=== PATIENT | female | born 1990 | race Two or more races ===

== ENCOUNTER 2019-04-30 14:18 | Emergency (ER) | payer OTHER ==
[~2019-04-30] VITALS: Ht 157.5 cm; Wt 58.0 kg
[2019-04-30 16:54] VITALS: BP 109/73
== END 2019-04-30 17:25 | disposition home or self-care (01) ==
LOC: ER 14:18
DX: R00.2 Palpitations (principal); R00.0 Tachycardia, unspecified
CPT/HCPCS: 81025; 93005; 99283

== ENCOUNTER 2019-05-01 22:55 | Emergency (ER) | payer OTHER ==
[~2019-05-01] VITALS: Ht 160 cm; Wt 57.0 kg
[2019-05-02 02:21] LABS: BASOPHILS % 0.8 % (0.0-2.0); EOSINOPHILS % 0.5 % (0.0-5.0); HEMATOCRIT. 41.6 % (36.0-48.0); HEMOGLOBIN. 14.2 g/dL (12.0-16.0); LYMPHOCYTES % 32.3 % (20.0-50.0); MEAN CORPUSCULAR HEMOGLOBIN 31.1 pg (28.0-32.0); MEAN CORPUSCULAR VOLUME 91.1 fL (81.0-99.0); MEAN PLATELET VOLUME 7.9 fl (7.4-10.4); MONOCYTES % 7.4 % (2.0-8.0); PLATELET 263 x1000/uL (130-400); RED BLOOD CELL COUNT 4.57 mill/uL (4.2-5.4); RED CELL DISTRIBUTION WIDTH 13.4 % (11.6-14.6)
[2019-05-02 02:31] LABS: CHLORIDE 107 mEq/L (98-107)
[2019-05-02 03:13] LABS: CLARITY URINE CLOUDY (CLEAR); COLOR URINE YELLOW (YELLOW); KETONES URINE NEGATIVE (NEGATIVE); LEUKOCYTE ESTERASE URINE TRACE (NEGATIVE); NITRITE URINE NEGATIVE (NEGATIVE); OCCULT BLOOD URINE NEGATIVE (NEGATIVE); PH URINE 5.5 (4.5-8.0); PROTEIN URINE NEGATIVE (NEGATIVE); SPECIFIC GRAVITY URINE 1.019 (1.005-1.030); UROBILINOGEN URINE 0.2 E.U./dL (0.2-1.0)
[2019-05-02] MEDS ORDERED: LORAZEPAM 0.5MG TABLET PO ONE (03:15)
[2019-05-02 05:29] VITALS: BP 110/64
== END 2019-05-02 05:30 | disposition home or self-care (01) ==
LOC: ER 22:55
DX: R00.2 Palpitations (principal)
CPT/HCPCS: 36415; 71045; 80053; 81003; 81025; 83880; 84484; 85025; 85379; 93005; 99285

== ENCOUNTER 2019-06-30 01:37 | Emergency (ER) | payer OTHER ==
[~2019-06-30] VITALS: Ht 157.5 cm; Wt 58.0 kg
[2019-06-30 04:03] LABS: CHLORIDE 104 mEq/L (98-107)
[2019-06-30 04:05] LABS: BASOPHILS % 0.5 % (0.0-2.0); EOSINOPHILS % 0.1 % (0.0-5.0); HEMATOCRIT. 44.3 % (36.0-48.0); HEMOGLOBIN. 15.2 g/dL (12.0-16.0); LYMPHOCYTES % 13.2 % (20.0-50.0); MEAN CORPUSCULAR HEMOGLOBIN 31.2 pg (28.0-32.0); MEAN CORPUSCULAR VOLUME 91.1 fL (81.0-99.0); MEAN PLATELET VOLUME 8.4 fl (7.4-10.4); MONOCYTES % 5.9 % (2.0-8.0); NEUTROPHILS % 80.3 % (40.0-76.0); PLATELET 275 x1000/uL (130-400); RED BLOOD CELL COUNT 4.86 mill/uL (4.2-5.4); RED CELL DISTRIBUTION WIDTH 13.7 % (11.6-14.6)
[2019-06-30 04:07] LABS: ETHANOL BLOOD < 10 mg/dL
[2019-06-30 04:30] LABS: *AMPHETAMINES SCREEN URINE NEGATIVE (NEGATIVE); *BARBITURATES SCREEN URINE NEGATIVE (NEGATIVE)
[2019-06-30 04:31] LABS: *BENZODIAZEPINES SCREEN URINE NEGATIVE (NEGATIVE); *COCAINE SCREEN URINE NEGATIVE (NEGATIVE); METHADONE URINE SCREEN NEGATIVE (NEGATIVE); OPIATES URINE SCREEN NEGATIVE (NEGATIVE); PHENCYCLIDINE URINE SCREEN NEGATIVE (NEGATIVE)
[2019-06-30 04:32] LABS: CANNABINOID URINE SCREEN NEGATIVE (NEGATIVE)
[2019-06-30 06:42] VITALS: BP 120/79
== END 2019-06-30 06:45 | disposition home or self-care (01) ==
LOC: ER 01:37
DX: F41.9 Anxiety disorder, unspecified (principal); F19.10 Other psychoactive substance abuse, uncomplicated; R53.1 Weakness
CPT/HCPCS: 36415; 80053; 80305; 80320; 81025; 85025; 93005; 99284; G0480

== ENCOUNTER 2019-07-19 18:12 | Emergency (ER) | payer OTHER ==
[2019-07-19] MEDS ORDERED: SODIUM CHLORIDE 0.9% 1,000 ML IV ONE (18:53)
[2019-07-19] MEDS ORDERED: ONDANSETRON HCL 4MG/2ML INJ IV STA (18:53)
[2019-07-19 19:43] LABS: CHLORIDE 107 mEq/L (98-107)
[2019-07-19 19:45] LABS: BASOPHILS % 0.5 % (0.0-2.0); EOSINOPHILS % 0.4 % (0.0-5.0); ETHANOL BLOOD < 10 mg/dL; HEMATOCRIT. 41.2 % (36.0-48.0); HEMOGLOBIN. 14.2 g/dL (12.0-16.0); LYMPHOCYTES % 29.8 % (20.0-50.0); MEAN CORPUSCULAR HEMOGLOBIN 31.8 pg (28.0-32.0); MEAN CORPUSCULAR VOLUME 92.3 fL (81.0-99.0); MONOCYTES % 7.9 % (2.0-8.0); NEUTROPHILS % 61.4 % (40.0-76.0); PLATELET 259 x1000/uL (130-400); RED BLOOD CELL COUNT 4.47 mill/uL (4.2-5.4); RED CELL DISTRIBUTION WIDTH 13.6 % (11.6-14.6)
[2019-07-19 19:53] LABS: HCG SCREEN POSITIVE
[2019-07-19 19:56] LABS: CLARITY URINE CLEAR (CLEAR); COLOR URINE YELLOW (YELLOW); KETONES URINE NEGATIVE (NEGATIVE); LEUKOCYTE ESTERASE URINE NEGATIVE (NEGATIVE); NITRITE URINE NEGATIVE (NEGATIVE); OCCULT BLOOD URINE NEGATIVE (NEGATIVE); PH URINE 5.5 (4.5-8.0); PROTEIN URINE NEGATIVE (NEGATIVE); SPECIFIC GRAVITY URINE 1.005 (1.005-1.030); UROBILINOGEN URINE 0.2 E.U./dL (0.2-1.0)
[2019-07-19] MEDS ORDERED: POTASSIUM CHLORIDE 20MEQ TABLET SR PO ONE (20:00)
[2019-07-19 20:18] LABS: *AMPHETAMINES SCREEN URINE NEGATIVE (NEGATIVE); *BARBITURATES SCREEN URINE NEGATIVE (NEGATIVE); *BENZODIAZEPINES SCREEN URINE NEGATIVE (NEGATIVE); *COCAINE SCREEN URINE NEGATIVE (NEGATIVE); METHADONE URINE SCREEN NEGATIVE (NEGATIVE); OPIATES URINE SCREEN NEGATIVE (NEGATIVE); PHENCYCLIDINE URINE SCREEN NEGATIVE (NEGATIVE)
[2019-07-19 20:19] LABS: CANNABINOID URINE SCREEN NEGATIVE (NEGATIVE)
[2019-07-19] MEDS ORDERED: METOCLOPRAMIDE HCL 10MG/2ML VIAL IV ONE (22:00)
[2019-07-19 23:00] VITALS: BP 117/63
== END 2019-07-19 23:11 | disposition home or self-care (01) ==
LOC: ER 18:12
DX: O26.891 Other specified pregnancy related conditions, first trimester (principal); R20.2 Paresthesia of skin; R11.2 Nausea with vomiting, unspecified; F41.9 Anxiety disorder, unspecified; Z3A.01 Less than 8 weeks gestation of pregnancy
CPT/HCPCS: 36415; 70450; 71045; 80053; 80305; 80320; 81003; 81025; 83690; 84484; 84703; 85025; 93005; 96361; 96374; 96375; 99285; J2405; J2765; J7030; G0480

== ENCOUNTER 2019-08-01 10:13 | Emergency (ER) | payer OTHER ==
[~2019-08-01] VITALS: Ht 160 cm; Wt 56.0 kg
[2019-08-01] MEDS ORDERED: ACETAMINOPHEN 325MG TABLET PO ONE (11:00)
[2019-08-01] MEDS ORDERED: SODIUM CHLORIDE 0.9% 1,000 ML IV ONE (11:00)
[2019-08-01 11:28] LABS: BASOPHILS % 0.5 % (0.0-2.0); EOSINOPHILS % 0.3 % (0.0-5.0); HEMATOCRIT. 38.9 % (36.0-48.0); HEMOGLOBIN. 13.7 g/dL (12.0-16.0); LYMPHOCYTES % 21.8 % (20.0-50.0); MEAN CORPUSCULAR HEMOGLOBIN 32.5 pg (28.0-32.0); MEAN CORPUSCULAR VOLUME 92.3 fL (81.0-99.0); MONOCYTES % 8.9 % (2.0-8.0); NEUTROPHILS % 68.5 % (40.0-76.0); PLATELET 245 x1000/uL (130-400); RED BLOOD CELL COUNT 4.21 mill/uL (4.2-5.4); RED CELL DISTRIBUTION WIDTH 13.2 % (11.6-14.6)
[2019-08-01 11:32] LABS: CHLORIDE 106 mEq/L (98-107)
[2019-08-01 11:58] LABS: CLARITY URINE CLEAR (CLEAR); COLOR URINE YELLOW (YELLOW); KETONES URINE NEGATIVE (NEGATIVE); LEUKOCYTE ESTERASE URINE TRACE (NEGATIVE); NITRITE URINE NEGATIVE (NEGATIVE); OCCULT BLOOD URINE NEGATIVE (NEGATIVE); PROTEIN URINE NEGATIVE (NEGATIVE)
[2019-08-01 12:00] LABS: HCG SCREEN POSITIVE
[2019-08-01 12:11] LABS: B-HCG QUANTITATIVE 30939 mIU/mL (<3)
[2019-08-01 12:27] LABS: *BARBITURATES SCREEN URINE NEGATIVE (NEGATIVE); *BENZODIAZEPINES SCREEN URINE NEGATIVE (NEGATIVE); *COCAINE SCREEN URINE NEGATIVE (NEGATIVE)
[2019-08-01 12:28] LABS: *AMPHETAMINES SCREEN URINE NEGATIVE (NEGATIVE); CANNABINOID URINE SCREEN NEGATIVE (NEGATIVE); METHADONE URINE SCREEN NEGATIVE (NEGATIVE); OPIATES URINE SCREEN NEGATIVE (NEGATIVE); PHENCYCLIDINE URINE SCREEN NEGATIVE (NEGATIVE)
[2019-08-01 15:11] VITALS: BP 105/65
== END 2019-08-01 15:14 | disposition home or self-care (01) ==
LOC: ER 10:13
DX: O26.891 Other specified pregnancy related conditions, first trimester (principal); R07.89 Other chest pain; F41.9 Anxiety disorder, unspecified; Z3A.01 Less than 8 weeks gestation of pregnancy
CPT/HCPCS: 36415; 71045; 76801; 76817; 80053; 80305; 81003; 81025; 83690; 83880; 84484; 84702; 84703; 85025; 85379; 93005; 93970; 99285; J7030

== ENCOUNTER 2019-11-28 20:43 | Emergency (ER) | payer OTHER ==
[~2019-11-28] VITALS: Ht 160 cm; Wt 55.0 kg
[2019-11-28 22:59] VITALS: BP 123/79
== END 2019-11-28 23:00 | disposition home or self-care (01) ==
LOC: ER 20:43
DX: S80.862A Insect bite (nonvenomous), left lower leg, initial encounter (principal); S80.861A Insect bite (nonvenomous), right lower leg, initial encounter; F41.9 Anxiety disorder, unspecified; W57.XXXA Bitten or stung by nonvenomous insect and other nonvenomous arthropods, initial encounter; Y93.9 Activity, unspecified; Y92.9 Unspecified place or not applicable
CPT/HCPCS: 99281

== ENCOUNTER 2019-11-29 10:28 | Emergency (ER) | payer OTHER ==
[~2019-11-29] VITALS: Ht 165.1 cm; Wt 64.0 kg
[2019-11-29] MEDS ORDERED: SODIUM CHLORIDE 0.9% 1,000 ML IV ONE (10:45)
[2019-11-29 11:41] LABS: BASOPHILS % 0.5 % (0.0-2.0); EOSINOPHILS % 2.6 % (0.0-5.0); HEMOGLOBIN. 13.5 g/dL (12.0-16.0); LYMPHOCYTES % 27.3 % (20.0-50.0); MEAN CORPUSCULAR VOLUME 88.7 fL (81.0-99.0); MEAN PLATELET VOLUME 8.3 fl (7.4-10.4); NEUTROPHILS % 61.6 % (40.0-76.0); PLATELET 228 x1000/uL (130-400); RED BLOOD CELL COUNT 4.51 mill/uL (4.2-5.4); RED CELL DISTRIBUTION WIDTH 15.4 % (11.6-14.6)
[2019-11-29 11:49] LABS: CHLORIDE 107 mEq/L (98-107)
[2019-11-29 11:50] LABS: ETHANOL BLOOD < 10 mg/dL
[2019-11-29] MEDS ORDERED: KETOROLAC 15MG/ML VIAL IV ONE (12:00)
[2019-11-29] MEDS: LORAZEPAM 2MG/ML CPJ IV ONE ×2 (12:10→12:16)
[2019-11-29 12:17] LABS: *AMPHETAMINES SCREEN URINE NEGATIVE (NEGATIVE); *BARBITURATES SCREEN URINE NEGATIVE (NEGATIVE); *BENZODIAZEPINES SCREEN URINE NEGATIVE (NEGATIVE); *COCAINE SCREEN URINE NEGATIVE (NEGATIVE); METHADONE URINE SCREEN NEGATIVE (NEGATIVE)
[2019-11-29 12:18] LABS: CANNABINOID URINE SCREEN NEGATIVE (NEGATIVE); OPIATES URINE SCREEN NEGATIVE (NEGATIVE); PHENCYCLIDINE URINE SCREEN NEGATIVE (NEGATIVE)
[2019-11-29 12:26] LABS: HCG SCREEN NEGATIVE
[2019-11-29 13:57] VITALS: BP 139/84
== END 2019-11-29 13:59 | disposition home or self-care (01) ==
LOC: ER 10:44
DX: R07.89 Other chest pain (principal); F41.9 Anxiety disorder, unspecified
CPT/HCPCS: 36415; 71045; 80053; 80305; 80320; 81025; 83880; 84484; 84703; 85025; 93005; 96361; 96374; 99285; J1885; J2060; J7030; G0480

== ENCOUNTER 2019-12-04 11:45 | Emergency (ER) | payer OTHER ==
[~2019-12-04] VITALS: Ht 160 cm; Wt 54.0 kg
[2019-12-04 12:19] VITALS: BP 117/76
[2019-12-04] MEDS ORDERED: IBUPROFEN 600MG TABLET PO ONE (13:00)
[2019-12-04] MEDS ORDERED: CYCLOBENZAPRINE 10MG TABLET PO ONE (13:00)
== END 2019-12-04 13:27 | disposition home or self-care (01) ==
LOC: ER 11:45
DX: S16.1XXA Strain of muscle, fascia and tendon at neck level, initial encounter (principal); G43.909 Migraine, unspecified, not intractable, without status migrainosus; G44.209 Tension-type headache, unspecified, not intractable; F41.9 Anxiety disorder, unspecified; X58.XXXA Exposure to other specified factors, initial encounter; Y93.9 Activity, unspecified; Y92.9 Unspecified place or not applicable
CPT/HCPCS: 99283

== ENCOUNTER 2020-01-26 22:39 | Emergency (ER) | payer OTHER ==
[~2020-01-26] VITALS: Ht 160 cm; Wt 55.0 kg
[2020-01-26 22:49] VITALS: BP 110/76
[2020-01-26] MEDS ORDERED: KETOROLAC 30MG/ML VIAL IM NR (23:15)
[2020-01-26] MEDS ORDERED: LORAZEPAM 0.5MG TABLET PO NR (23:30)
[2020-01-26] MEDS ORDERED: VISCOUS LIDOCAINE 2% 15 ML UDC PO STA (23:54)
[2020-01-26] MEDS ORDERED: MAGNESIUM/ALUMINUM HYDROXIDE/SIMETHICONE 30ML UDC PO STA (23:54)
== END 2020-01-27 00:45 | disposition home or self-care (01) ==
LOC: ER 22:39
DX: F41.9 Anxiety disorder, unspecified (principal); K21.9 Gastro-esophageal reflux disease without esophagitis
CPT/HCPCS: 96372; 99283; J1885

== ENCOUNTER 2020-02-18 08:15 | Emergency (ER) | payer OTHER ==
[~2020-02-18] VITALS: Ht 157.5 cm; Wt 56.0 kg
[2020-02-18] MEDS ORDERED: ACETAMINOPHEN 325MG TABLET PO ONE (08:45)
[2020-02-18 10:21] VITALS: BP 124/87
== END 2020-02-18 10:25 | disposition home or self-care (01) ==
LOC: ER 08:15
DX: M25.531 Pain in right wrist (principal); I49.9 Cardiac arrhythmia, unspecified
CPT/HCPCS: 93005; 99283

== ENCOUNTER 2020-02-19 19:03 | Emergency (ER) | payer OTHER ==
[~2020-02-19] VITALS: Ht 157.5 cm; Wt 50.0 kg
[2020-02-19 19:05] VITALS: BP 119/85
== END 2020-02-20 05:29 | disposition left against medical advice (07) ==
LOC: ER 19:03
DX: Z53.21 Procedure and treatment not carried out due to patient leaving prior to being seen by health care provider (principal)

== ENCOUNTER 2020-02-22 10:43 | Emergency (ER) | payer OTHER ==
[~2020-02-22] VITALS: Ht 157.5 cm; Wt 55.0 kg
[2020-02-22 15:02] LABS: BASOPHILS % 0.6 % (0.0-2.0); EOSINOPHILS % 0.8 % (0.0-5.0); HEMATOCRIT. 39.7 % (36.0-48.0); HEMOGLOBIN. 13.6 g/dL (12.0-16.0); LYMPHOCYTES % 31.9 % (20.0-50.0); MEAN CORPUSCULAR VOLUME 90.7 fL (81.0-99.0); MEAN PLATELET VOLUME 8.3 fl (7.4-10.4); MONOCYTES % 6.3 % (2.0-8.0); NEUTROPHILS % 60.4 % (40.0-76.0); PLATELET 255 x1000/uL (130-400); RED BLOOD CELL COUNT 4.38 mill/uL (4.2-5.4); RED CELL DISTRIBUTION WIDTH 13.4 % (11.6-14.6)
[2020-02-22 15:10] LABS: CHLORIDE 106 mEq/L (98-107)
[2020-02-22 15:15] LABS: ETHANOL BLOOD < 10 mg/dL
[2020-02-22 15:20] LABS: INR 1.1; PROTHROMBIN TIME 11.6 sec (9.6-11.0)
[2020-02-22 15:21] LABS: CLARITY URINE TURBID (CLEAR); COLOR URINE YELLOW (YELLOW); KETONES URINE NEGATIVE (NEGATIVE); LEUKOCYTE ESTERASE URINE TRACE (NEGATIVE); NITRITE URINE NEGATIVE (NEGATIVE); OCCULT BLOOD URINE NEGATIVE (NEGATIVE); PROTEIN URINE NEGATIVE (NEGATIVE)
[2020-02-22 15:27] LABS: HCG SCREEN NEGATIVE
[2020-02-22 15:43] LABS: *AMPHETAMINES SCREEN URINE NEGATIVE (NEGATIVE); *BARBITURATES SCREEN URINE NEGATIVE (NEGATIVE); *BENZODIAZEPINES SCREEN URINE NEGATIVE (NEGATIVE); CANNABINOID URINE SCREEN NEGATIVE (NEGATIVE); METHADONE URINE SCREEN NEGATIVE (NEGATIVE); OPIATES URINE SCREEN NEGATIVE (NEGATIVE); PHENCYCLIDINE URINE SCREEN NEGATIVE (NEGATIVE)
[2020-02-22 15:44] LABS: *COCAINE SCREEN URINE NEGATIVE (NEGATIVE)
[2020-02-22] MEDS ORDERED: IOHEXOL-300 100 ML BOTTLE ONE (16:26)
[2020-02-22 20:09] VITALS: BP 124/81
== END 2020-02-22 20:30 | disposition home or self-care (01) ==
LOC: ER 10:43
DX: R10.9 Unspecified abdominal pain (principal); F41.9 Anxiety disorder, unspecified
CPT/HCPCS: 36415; 74177; 76705; 76830; 76856; 80053; 80305; 80320; 81003; 81025; 83690; 84703; 85025; 85610; 93005; 99285; Q9967; Z7610; G0480

== ENCOUNTER 2020-03-26 22:40 | Emergency (ER) | payer OTHER ==
[~2020-03-26] VITALS: Ht 157.5 cm; Wt 56.0 kg
[2020-03-27 00:53] LABS: CLARITY URINE CLEAR (CLEAR); COLOR URINE YELLOW (YELLOW); KETONES URINE NEGATIVE (NEGATIVE); NITRITE URINE NEGATIVE (NEGATIVE); OCCULT BLOOD URINE NEGATIVE (NEGATIVE); PH URINE 6.5 (4.5-8.0); PROTEIN URINE NEGATIVE (NEGATIVE)
[2020-03-27 00:54] LABS: UROBILINOGEN URINE 0.2 E.U./dL (0.2-1.0)
[2020-03-27 00:55] LABS: LEUKOCYTE ESTERASE URINE 2+ (NEGATIVE)
[2020-03-27 01:00] VITALS: BP 118/76
== END 2020-03-27 01:13 | disposition home or self-care (01) ==
LOC: ER 22:40
DX: S29.011A Strain of muscle and tendon of front wall of thorax, initial encounter (principal); N39.0 Urinary tract infection, site not specified; X50.0XXA Overexertion from strenuous movement or load, initial encounter; X50.9XXA Other and unspecified overexertion or strenuous movements or postures, initial encounter; Y93.89 Activity, other specified; Y92.89 Other specified places as the place of occurrence of the external cause; Y99.8 Other external cause status
CPT/HCPCS: 71045; 81003; 93005; 99285

== ENCOUNTER 2020-03-29 19:43 | Emergency (ER) | payer OTHER ==
[~2020-03-29] VITALS: Ht 157.5 cm; Wt 55.0 kg
[2020-03-29 19:51] VITALS: BP 124/85
== END 2020-03-29 20:49 | disposition home or self-care (01) ==
LOC: ER 19:43
DX: M54.5 Low back pain (principal); Z87.440 Personal history of urinary (tract) infections; F12.10 Cannabis abuse, uncomplicated
CPT/HCPCS: 99281

== ENCOUNTER 2020-04-29 15:25 | Emergency (ER) | payer SELFPAY ==
[~2020-04-29] VITALS: Ht 165.1 cm; Wt 60.0 kg
[2020-04-29 16:29] LABS: HEMATOCRIT 41.7 % (36.0-48.0); HEMOGLOBIN 13.9 g/dL (12.0-16.0); MEAN CORPUSCULAR HEMOGLOBIN 30.6 pg (28.0-32.0); MEAN CORPUSCULAR VOLUME 91.7 fL (81.0-99.0); PLATELET 278 x1000/uL (130-400); RED BLOOD CELL COUNT 4.55 mill/uL (4.2-5.4); RED CELL DISTRIBUTION WIDTH 13.5 % (11.6-14.6)
[2020-04-29 16:39] LABS: CHLORIDE 107 mEq/L (98-107)
[2020-04-29 16:41] LABS: HCG SCREEN NEGATIVE
[2020-04-29 17:25] VITALS: BP 113/95
[2020-04-29] MEDS ORDERED: ACETAMINOPHEN 325MG TABLET PO ONE (17:30)
[2020-04-29] MEDS ORDERED: DOCUSATE SODIUM 100MG CAPSULE PO ONE (17:30)
[2020-04-29] MEDS ORDERED: MAGNESIUM/ALUMINUM HYDROXIDE/SIMETHICONE 30ML UDC PO ONE (18:15)
== END 2020-04-29 19:09 | disposition home or self-care (01) ==
LOC: ER 15:25
DX: K59.00 Constipation, unspecified (principal); F41.9 Anxiety disorder, unspecified; F12.10 Cannabis abuse, uncomplicated; F16.10 Hallucinogen abuse, uncomplicated
CPT/HCPCS: 36415; 80053; 84703; 85027; 93005; 99284

== ENCOUNTER 2020-05-02 07:14 | Emergency (ER) | payer MEDICAID ==
[~2020-05-02] VITALS: Ht 167.6 cm; Wt 65.0 kg
[2020-05-02] MEDS ORDERED: DICYCLOMINE 10 MG/5 ML ORAL SYR PO STA (07:44)
[2020-05-02] MEDS ORDERED: MAGNESIUM/ALUMINUM HYDROXIDE/SIMETHICONE 30ML UDC PO STA (07:44)
[2020-05-02] MEDS ORDERED: VISCOUS LIDOCAINE 2% 15 ML UDC PO STA (07:44)
[2020-05-02 08:13] LABS: BASOPHILS % 0.6 % (0.0-2.0); EOSINOPHILS % 1.1 % (0.0-5.0); HEMATOCRIT. 39.9 % (36.0-48.0); HEMOGLOBIN. 13.3 g/dL (12.0-16.0); LYMPHOCYTES % 34.5 % (20.0-50.0); MEAN CORPUSCULAR HEMOGLOBIN 30.4 pg (28.0-32.0); MEAN CORPUSCULAR VOLUME 91.1 fL (81.0-99.0); MEAN PLATELET VOLUME 7.7 fl (7.4-10.4); MONOCYTES % 8.3 % (2.0-8.0); NEUTROPHILS % 55.5 % (40.0-76.0); PLATELET 254 x1000/uL (130-400); RED BLOOD CELL COUNT 4.38 mill/uL (4.2-5.4); RED CELL DISTRIBUTION WIDTH 13.3 % (11.6-14.6)
[2020-05-02 08:17] LABS: CLARITY URINE CLOUDY (CLEAR); COLOR URINE YELLOW (YELLOW); KETONES URINE NEGATIVE (NEGATIVE); LEUKOCYTE ESTERASE URINE TRACE (NEGATIVE); NITRITE URINE NEGATIVE (NEGATIVE); OCCULT BLOOD URINE NEGATIVE (NEGATIVE); PROTEIN URINE NEGATIVE (NEGATIVE); SPECIFIC GRAVITY URINE 1.027 (1.005-1.030); UROBILINOGEN URINE 0.2 E.U./dL (0.2-1.0)
[2020-05-02 08:19] LABS: CHLORIDE 107 mEq/L (98-107)
[2020-05-02 08:26] LABS: HCG SCREEN NEGATIVE
[2020-05-02] MEDS ORDERED: POTASSIUM CHLORIDE 20MEQ TABLET SR PO ONE (08:45)
[2020-05-02 10:42] VITALS: BP 111/76
== END 2020-05-02 10:45 | disposition home or self-care (01) ==
LOC: ER 07:14
DX: R10.9 Unspecified abdominal pain (principal); F41.9 Anxiety disorder, unspecified
CPT/HCPCS: 36415; 76705; 80053; 81003; 83690; 84703; 85025; 93005; 99285; Z7610

== ENCOUNTER 2020-06-12 14:33 | Emergency (ER) | payer MEDICAID ==
[~2020-06-12] VITALS: Ht 157.5 cm; Wt 56.0 kg
[2020-06-12 15:54] LABS: CLARITY URINE CLEAR (CLEAR); COLOR URINE YELLOW (YELLOW); KETONES URINE NEGATIVE (NEGATIVE); LEUKOCYTE ESTERASE URINE NEGATIVE (NEGATIVE); NITRITE URINE NEGATIVE (NEGATIVE); OCCULT BLOOD URINE 2+ (NEGATIVE); PROTEIN URINE NEGATIVE (NEGATIVE); SPECIFIC GRAVITY URINE 1.006 (1.005-1.030); UROBILINOGEN URINE 0.2 E.U./dL (0.2-1.0)
[2020-06-12 16:52] VITALS: BP 111/70
== END 2020-06-12 16:54 | disposition home or self-care (01) ==
LOC: ER 15:10
DX: N39.0 Urinary tract infection, site not specified (principal)
CPT/HCPCS: 81003; 99283

== ENCOUNTER 2020-06-14 03:19 | Emergency (ER) | payer SELFPAY ==
[~2020-06-14] VITALS: Ht 157.5 cm; Wt 54.7 kg
[2020-06-14 05:12] LABS: BASOPHILS % 0.5 % (0.0-2.0); EOSINOPHILS % 1.4 % (0.0-5.0); HEMATOCRIT. 40.5 % (36.0-48.0); HEMOGLOBIN. 13.2 g/dL (12.0-16.0); LYMPHOCYTES % 29.6 % (20.0-50.0); MEAN CORPUSCULAR HEMOGLOBIN 29.5 pg (28.0-32.0); MEAN CORPUSCULAR VOLUME 90.4 fL (81.0-99.0); MEAN PLATELET VOLUME 7.7 fl (7.4-10.4); MONOCYTES % 7.7 % (2.0-8.0); NEUTROPHILS % 60.8 % (40.0-76.0); PLATELET 286 x1000/uL (130-400); RED BLOOD CELL COUNT 4.48 mill/uL (4.2-5.4); RED CELL DISTRIBUTION WIDTH 13.2 % (11.6-14.6)
[2020-06-14 05:20] LABS: CHLORIDE 106 mEq/L (98-107)
[2020-06-14 05:24] LABS: ETHANOL BLOOD < 10 mg/dL
[2020-06-14 05:25] LABS: HCG SCREEN NEGATIVE
[2020-06-14 05:57] LABS: *AMPHETAMINES SCREEN URINE NEGATIVE (NEGATIVE); *BARBITURATES SCREEN URINE NEGATIVE (NEGATIVE); *BENZODIAZEPINES SCREEN URINE NEGATIVE (NEGATIVE); *COCAINE SCREEN URINE NEGATIVE (NEGATIVE); METHADONE URINE SCREEN NEGATIVE (NEGATIVE)
[2020-06-14 05:58] LABS: CANNABINOID URINE SCREEN NEGATIVE (NEGATIVE); OPIATES URINE SCREEN NEGATIVE (NEGATIVE); PHENCYCLIDINE URINE SCREEN NEGATIVE (NEGATIVE)
[2020-06-14] MEDS ORDERED: CEFTRIAXONE 1 G PREMIX 50 ML IV ONE (07:00)
[2020-06-14 08:15] LABS: CLARITY URINE CLOUDY (CLEAR); COLOR URINE YELLOW (YELLOW); KETONES URINE NEGATIVE (NEGATIVE); LEUKOCYTE ESTERASE URINE 3+ (NEGATIVE); NITRITE URINE NEGATIVE (NEGATIVE); OCCULT BLOOD URINE TRACE (NEGATIVE); PH URINE 5.5 (4.5-8.0); PROTEIN URINE NEGATIVE (NEGATIVE); SPECIFIC GRAVITY URINE 1.024 (1.005-1.030); UROBILINOGEN URINE 0.2 E.U./dL (0.2-1.0)
[2020-06-14] MEDS ORDERED: CIPR-263 MT (10:54)
[2020-06-14] MEDS ORDERED: IBUP-2028 MT (10:54)
[2020-06-14 11:25] VITALS: BP 119/70
== END 2020-06-14 11:25 | disposition home or self-care (01) ==
LOC: ER 03:19
DX: R07.89 Other chest pain (principal); N12 Tubulo-interstitial nephritis, not specified as acute or chronic; R06.02 Shortness of breath; F41.9 Anxiety disorder, unspecified; Z79.899 Other long term (current) drug therapy
CPT/HCPCS: 36415; 71045; 80053; 80305; 80320; 81003; 81025; 83880; 84484; 84703; 85025; 85379; 87086; 87106; 93005; 96365; 99285; J0696; J7040; Z7610; G0480

== ENCOUNTER 2020-07-17 19:19 | Emergency (ER) | payer SELFPAY ==
[~2020-07-17] VITALS: Ht 157.5 cm; Wt 57.0 kg
[~2020-07-17 19:19] MED LIST: CIPR-263 MT; IBUP-2028 MT
[2020-07-17 19:25] VITALS: BP 121/81
[2020-07-17] MEDS ORDERED: OXYC-100 MT (19:35)
== END 2020-07-17 20:00 | disposition home or self-care (01) ==
LOC: ER 19:19
DX: K02.9 Dental caries, unspecified (principal); Z79.899 Other long term (current) drug therapy
CPT/HCPCS: 99282

== ENCOUNTER 2020-07-22 01:02 | Emergency (ER) | payer SELFPAY ==
[~2020-07-22] VITALS: Ht 157.5 cm; Wt 56.0 kg
[~2020-07-22 01:02] MED LIST changes: +OXYC-100 MT
[2020-07-22 01:14] VITALS: BP 104/72
== END 2020-07-22 02:26 | disposition left against medical advice (07) ==
LOC: ER 01:02 → EDUNIT# 01:02 → ER 02:26
DX: Z53.21 Procedure and treatment not carried out due to patient leaving prior to being seen by health care provider (principal); F41.9 Anxiety disorder, unspecified
CPT/HCPCS: 93005

== ENCOUNTER 2020-07-25 10:17 | Emergency (ER) | payer MEDICAID ==
[~2020-07-25] VITALS: Ht 157.5 cm; Wt 56.0 kg
[2020-07-25] MEDS ORDERED: AMOXICILLIN/POTASSIUM CLAVULANATE 875/125MG TAB PO ONE (11:00)
[2020-07-25] MEDS ORDERED: MECLIZINE 25MG TABLET PO ONE (11:00)
[2020-07-25] MEDS ORDERED: MECL-159 MT (11:57)
[2020-07-25] MEDS ORDERED: AMOX1TAB16 MT (11:57)
[2020-07-25 12:18] VITALS: BP 108/73
== END 2020-07-25 12:23 | disposition home or self-care (01) ==
LOC: ER 10:17
DX: H66.92 Otitis media, unspecified, left ear (principal); R42 Dizziness and giddiness; J32.9 Chronic sinusitis, unspecified; F41.9 Anxiety disorder, unspecified
CPT/HCPCS: 81025; 82962; 93005; 99283; J8597

== ENCOUNTER 2020-08-11 03:00 | Emergency (ER) | payer MEDICAID ==
[~2020-08-11] VITALS: Ht 157.5 cm; Wt 54.0 kg
[~2020-08-11 03:00] MED LIST changes: +AMOX1TAB16 MT; +MECL-159 MT
[2020-08-11 03:03] VITALS: BP 117/72
== END 2020-08-11 05:08 | disposition left against medical advice (07) ==
LOC: ER 03:00
DX: R07.89 Other chest pain (principal); Z53.21 Procedure and treatment not carried out due to patient leaving prior to being seen by health care provider
CPT/HCPCS: 93005

== ENCOUNTER 2020-08-30 21:13 | Emergency (ER) | payer SELFPAY ==
[~2020-08-30] VITALS: Ht 157.5 cm; Wt 55.0 kg
[2020-08-30 23:44] VITALS: BP 110/73
== END 2020-08-30 23:45 | disposition home or self-care (01) ==
LOC: ER 21:13
DX: R07.89 Other chest pain (principal); F41.9 Anxiety disorder, unspecified; Z79.899 Other long term (current) drug therapy
CPT/HCPCS: 71045; 93005; 99283

== ENCOUNTER 2021-10-10 16:51 | Emergency (ER) | payer MEDICAID ==
[~2021-10-10] VITALS: Ht 157.5 cm; Wt 59.0 kg
[2021-10-10 16:51] VITALS: BP 129/87
== END 2021-10-10 20:18 | disposition left against medical advice (07) ==
LOC: ER 16:51
DX: Z53.21 Procedure and treatment not carried out due to patient leaving prior to being seen by health care provider (principal)
CPT/HCPCS: 93005